=== PATIENT | male | born 1970 | race Caucasian/White ===

== ENCOUNTER 2024-05-04 12:29 | Emergency (ER) | payer OTHER ==
[2024-05-04 12:54] VITALS: BP 103/76; PULSE 72; RESP 18; TEMP 98.2; BMI 23.0
== END 2024-05-04 13:30 | disposition home or self-care (01) ==
LOC: FER 12:29
DX: S63.287A Dislocation of proximal interphalangeal joint of left little finger, initial encounter (principal); V28.09XA Other motorcycle driver injured in noncollision transport accident in nontraffic accident, initial encounter; Y93.55 Activity, bike riding
CPT/HCPCS: 73130-TC-LT-FY; 73140-TC-LT-FY; 99283-25